=== PATIENT | male | born 1955 | race Caucasian/White ===

== ENCOUNTER 2020-12-03 02:07 | Inpatient (IN) | payer BC, OTHER ==
[~2020-12-03] VITALS: Ht 185.4 cm; Wt 124.4 kg
[2020-12-03] MEDS ORDERED: TAMS-11 PO (02:23)
[2020-12-03] MEDS ORDERED: ATOR40TA78 PO (02:24)
[2020-12-03] MEDS ORDERED: METO25TA35 PO (02:24)
[2020-12-03] MEDS ORDERED: LISI-424 PO (02:25)
[2020-12-03] MEDS ORDERED: ASPI-515 PO (02:26)
[2020-12-03] MEDS ORDERED: OMEP-110 PO (02:27)
--- NOTE | 2020-12-03 02:35 | NUR ---
bib air one from [facility] for c/o sob covid pos, pt a and o x 4 speaking in full sentences on bipap at 80% o2, pt pleasent talkative tolerating bipap well, pt placed on all monitors, pt has 18 g piv to right ac and 18 g to right hand, pt was given ceftriaxone azithromicin decadron and asa at [facility] [place].
--- NOTE | 2020-12-03 03:30 | NUR ---
PT TOLERATING BI PAP, VSS
--- NOTE | 2020-12-03 03:41 | NUR ---
awaiting admit bed
--- NOTE | 2020-12-03 04:57 | NUR ---
REPORT TO GERARDO PT TO CCU [id number] AT THIS TIME WITH THIS RN TECH AND RT ON 100% NON REBREATHER, PLACED ON BI PAP IN CICU TOLERATED WELL
[2020-12-03] MEDS ORDERED: HEPARIN 5,000 UNITS/ML, 1ML IV ONE (05:00)
[2020-12-03] MEDS ORDERED: ONDANSETRON 2MG/ML, 2ML IVPush PRN (05:00)
[2020-12-03] MEDS ORDERED: PHARMACY MAY ADJ FOR RENAL FX MC PRN (05:00)
[2020-12-03] MEDS ORDERED: HEPARIN 5,000 UNITS/ML, 1ML IV PRN (05:00)
[2020-12-03] MEDS ORDERED: morphine SULFATE 10 MG/ML, 1ML IVPush PRN (05:00)
[2020-12-03] MEDS ORDERED: LABETALOL 5MG/ML, 20ML IVPush PRN (05:00)
[2020-12-03] MEDS: CEFTRIAXONE PMX 1GM/50ML 50 ML IV SCH (05:20)
[2020-12-03 05:33] VITALS: BP 132/85
[2020-12-03 06:10] LABS: BASOPHILS % (AUTO) 0 % (0-1); EOSINOPHILS % (AUTO) 0 % (1-7); LYMPHOCYTES % (AUTO) 17 % (22-44); MEAN CORPUSCULAR HEMOGLOBIN 29.4 pg (27.5-34.5); MEAN CORPUSCULAR HGB CONC 34.4 g/dL (33.2-36.2); MEAN PLATELET VOLUME 8.5 fL (7.4-10.4); MONOCYTES % (AUTO) 7 % (2-9); NEUTROPHILS % (AUTO) 76 % (42-75); PLATELET COUNT 180 x10^3/uL (130-400); RED BLOOD COUNT 5.06 x10^6/uL (4.38-5.82); RED CELL DISTRIBUTION WIDTH 14.3 % (9.4-14.8)
[2020-12-03 06:18] LABS: CHLORIDE 105 mmol/L (98-107)
[2020-12-03 06:22] LABS: D-DIMER 15.88 ug/mlFEU (0.00-0.52)
[2020-12-03 06:23] LABS: ALBUMIN 2.6 g/dL (3.4-5.0); ANION GAP 8 mmol/L (5-15); BILIRUBIN,TOTAL 0.6 mg/dL (0.2-1.0); CALCIUM 8.2 mg/dL (8.5-10.1); TOTAL PROTEIN 6.6 g/dL (6.4-8.2)
[2020-12-03 06:24] LABS: MD NO
[2020-12-03 06:33] LABS: ALANINE AMINOTRANSFERASE 35 U/L (12-78); ALKALINE PHOSPHATASE 104 U/L (45-117); CREATININE 1.12 mg/dL (0.7-1.3)
[2020-12-03] MEDS: HEPARIN 25,000 UNITS/250ML PMX 250 ML IV PRN (06:38)
[2020-12-03] MEDS ORDERED: REMDESIVIR 200 MG in SODIUM CHLORIDE 0.9% 250 ML IVPB ONE (07:00)
[2020-12-03] MEDS: CHOLECALCIFEROL 5,000u TAB PO SCH (09:22)
[2020-12-03] MEDS: DOXYCYCLINE 100MG TABLET PO SCH ×2 (09:22→21:31)
[2020-12-03] MEDS: ASCORBIC ACID 500 MG TABLET PO SCH ×2 (09:22→16:57)
[2020-12-03] MEDS: OMEPRAZOLE 20 MG CAPSULE.DR PO SCH (09:22)
[2020-12-03] MEDS: SENNA/DOCUSATE TABLET PO SCH (09:22)
[2020-12-03] MEDS: DEXAMETHASONE 4 MG/ML, 1ML IVPush SCH (09:22)
[2020-12-03] MEDS: INSULIN LISPRO 100 UNITS/ML, PEN SQ-INSULIN SCH ×4 (09:27→21:31)
[2020-12-03 10:10] LABS: RAPID INFLUENZA A Negative (Negative); RAPID INFLUENZA B Negative (Negative)
[2020-12-03] MEDS: ZINC SULFATE 220 MG CAPSULE PO SCH (11:59)
[2020-12-03] MEDS: THIAMINE 100MG TABLET PO SCH (11:59)
[2020-12-03] MEDS ORDERED: PROPOFOL 0 ML IV ONE (12:08)
[2020-12-03] MEDS ORDERED: MIDAZOLAM 1 MG/ML, 2ML IVPush ONE (12:20)
[2020-12-03] MEDS ORDERED: PROPOFOL 10 MG/ML, 20ML IVPush ONE (12:20)
[2020-12-03] MEDS ORDERED: ROCURONIUM 10 MG/ML,10ML IVPush ONE (12:20)
[2020-12-03] MEDS: ASPIRIN 81 MG TABLET CHEW PO SCH (12:52)
[2020-12-03 13:10] LABS: MICROSCOPIC INDICATED
[2020-12-03 13:12] LABS: POTASSIUM,URINE RANDOM 37 mmol/L
[2020-12-03 13:23] LABS: CHLORIDE,URINE RANDOM < 10 mmol/L; SODIUM,URINE RANDOM < 5 mmol/L
[2020-12-03] MEDS ORDERED: PROPOFOL 10 MG/ML, 20ML IV ONE (13:30)
[2020-12-03] MEDS ORDERED: LIDOCAINE-MPF 1%, 2ML ENDO PRN (13:30)
[2020-12-03] MEDS ORDERED: PHARMACY MAY ADJ FOR RENAL FX MC SCH (13:30)
[2020-12-03] MEDS: PROPOFOL 100 ML IV PRN ×3 (14:08→22:58)
[2020-12-03] MEDS ORDERED: ROCURONIUM 10MG/ML,5ML ONE (16:25)
[2020-12-03] MEDS ORDERED: PROPOFOL 10 MG/ML, 20ML ONE (16:25)
[2020-12-03] MEDS ORDERED: PROPOFOL 10 MG/ML, 100ML IV ONE (16:25)
[2020-12-03] MEDS: CARVEDILOL 3.125 MG TABLET PO SCH (16:57)
[2020-12-03] MEDS: MELATONIN 5 MG TABLET PO SCH (21:31)
[2020-12-03] MEDS: ATORVASTATIN 40 MG TABLET PO SCH (21:31)
[2020-12-04] MEDS: HEPARIN 25,000 UNITS/250ML PMX 250 ML IV PRN ×2 (01:42→22:04)
[2020-12-04] MEDS: PROPOFOL 100 ML IV PRN ×2 (02:35→05:18)
[2020-12-04] MEDS: INSULIN LISPRO 100 UNITS/ML, PEN SQ-INSULIN SCH ×4 (03:41→20:22)
[2020-12-04 04:35] LABS: ALANINE AMINOTRANSFERASE 27 U/L (12-78); ALBUMIN 2.4 g/dL (3.4-5.0); ANION GAP 7 mmol/L (5-15); CALCIUM 7.8 mg/dL (8.5-10.1); CHLORIDE 107 mmol/L (98-107); CREATININE 1.41 mg/dL (0.7-1.3)
[2020-12-04 04:38] LABS: BASOPHILS % (AUTO) 0 % (0-1); EOSINOPHILS % (AUTO) 0 % (1-7); LYMPHOCYTES % (AUTO) 9 % (22-44); MEAN CORPUSCULAR HEMOGLOBIN 29.7 pg (27.5-34.5); MEAN CORPUSCULAR HGB CONC 33.7 g/dL (33.2-36.2); MONOCYTES % (AUTO) 8 % (2-9); NEUTROPHILS % (AUTO) 82 % (42-75); PLATELET COUNT 258 x10^3/uL (130-400); RED BLOOD COUNT 4.73 x10^6/uL (4.38-5.82); RED CELL DISTRIBUTION WIDTH 14.7 % (9.4-14.8)
[2020-12-04 04:39] LABS: ALKALINE PHOSPHATASE 98 U/L (45-117); BILIRUBIN,TOTAL 0.5 mg/dL (0.2-1.0); CHOL/HDL RATIO 5.4; CHOLESTEROL, TOTAL 98 mg/dL (140-239); HDL CHOL % 18 % (26-37); HDL CHOLESTEROL (DIRECT) 18 mg/dL (40-60); LDL CHOLESTEROL,CALCULATED 18 mg/dL (54-169); TOTAL PROTEIN 6.1 g/dL (6.4-8.2); TRIGLYCERIDES 309 mg/dL (50-200); VLDL CHOLESTEROL 62 mg/dL (0-25)
[2020-12-04 05:06] LABS: MD NO
[2020-12-04] MEDS: CARVEDILOL 3.125 MG TABLET PO SCH ×2 (05:25→17:41)
[2020-12-04] MEDS: ASPIRIN 81 MG TABLET CHEW PO SCH (05:25)
[2020-12-04] MEDS: CEFTRIAXONE PMX 1GM/50ML 50 ML IV SCH (05:26)
[2020-12-04] MEDS: REMDESIVIR 100 MG in SODIUM CHLORIDE 0.9% 250 ML IVPB SCH (07:52)
[2020-12-04] MEDS: SENNA/DOCUSATE TABLET PO SCH (08:16)
[2020-12-04] MEDS: DOXYCYCLINE 100MG TABLET PO SCH ×2 (08:16→20:13)
[2020-12-04] MEDS: OMEPRAZOLE 20 MG CAPSULE.DR PO SCH (08:16)
[2020-12-04] MEDS: THIAMINE 100MG TABLET PO SCH (08:17)
[2020-12-04] MEDS: DEXAMETHASONE 4 MG/ML, 1ML IVPush SCH (08:17)
[2020-12-04] MEDS: CHOLECALCIFEROL 5,000u TAB PO SCH (08:18)
[2020-12-04] MEDS: ASCORBIC ACID 500 MG TABLET PO SCH ×2 (08:18→17:42)
[2020-12-04] MEDS: MIDAZOLAM HCL 50 MG in SODIUM CHLORIDE 0.9% 40 ML IV PRN ×4 (08:43→22:08)
[2020-12-04] MEDS: ZINC SULFATE 220 MG CAPSULE PO SCH (11:48)
[2020-12-04] MEDS ORDERED: FUROSEMIDE 40 MG/4 ML IV ONE (12:00)
[2020-12-04] MEDS ORDERED: VECURONIUM 10 MG ONE (16:09)
[2020-12-04] MEDS: VECURONIUM 50 MG in SODIUM CHLORIDE 0.9% 50 ML IV PRN ×2 (16:30→20:13)
[2020-12-04] MEDS: ARTIFICIAL TEARS OINT 3.5 GM OP SCH ×3 (16:36→22:07)
[2020-12-04] MEDS ORDERED: ARTIFICIAL TEARS OINT 3.5 GM EACHEYE PRN (17:30)
[2020-12-04] MEDS: ATORVASTATIN 40 MG TABLET PO SCH (20:13)
[2020-12-04] MEDS: MELATONIN 5 MG TABLET PO SCH (20:13)
[2020-12-04] MEDS ORDERED: INSULIN GLARGINE 100 UNITS/ML, PEN SQ-INSULIN SCH (21:00)
[2020-12-05] MEDS: ARTIFICIAL TEARS OINT 3.5 GM OP SCH ×6 (01:33→21:11)
[2020-12-05] MEDS: FENTANYL PF 100 MCG/2ML IVPush PRN ×2 (01:45→12:13)
[2020-12-05] MEDS: VECURONIUM 50 MG in SODIUM CHLORIDE 0.9% 50 ML IV PRN ×2 (02:10→17:58)
[2020-12-05] MEDS: INSULIN LISPRO 100 UNITS/ML, PEN SQ-INSULIN SCH ×4 (03:14→21:11)
[2020-12-05] MEDS: MIDAZOLAM HCL 50 MG in SODIUM CHLORIDE 0.9% 40 ML IV PRN ×4 (03:16→17:58)
[2020-12-05 04:44] LABS: BASOPHILS % (AUTO) 0 % (0-1); EOSINOPHILS % (AUTO) 0 % (1-7); LYMPHOCYTES % (AUTO) 7 % (22-44); MEAN CORPUSCULAR HEMOGLOBIN 29.6 pg (27.5-34.5); MEAN CORPUSCULAR HGB CONC 33.6 g/dL (33.2-36.2); MEAN PLATELET VOLUME 8.6 fL (7.4-10.4); MONOCYTES % (AUTO) 10 % (2-9); NEUTROPHILS % (AUTO) 82 % (42-75); PLATELET COUNT 274 x10^3/uL (130-400); RED BLOOD COUNT 4.74 x10^6/uL (4.38-5.82); RED CELL DISTRIBUTION WIDTH 14.9 % (9.4-14.8)
[2020-12-05 04:48] LABS: MD NO
[2020-12-05 04:58] LABS: ALBUMIN 2.4 g/dL (3.4-5.0); ANION GAP 4 mmol/L (5-15); CALCIUM 7.6 mg/dL (8.5-10.1); CHLORIDE 106 mmol/L (98-107)
[2020-12-05 05:03] LABS: ALANINE AMINOTRANSFERASE 23 U/L (12-78); ALKALINE PHOSPHATASE 104 U/L (45-117); BILIRUBIN,TOTAL 0.5 mg/dL (0.2-1.0); CREATININE 0.98 mg/dL (0.7-1.3)
[2020-12-05] MEDS: CARVEDILOL 3.125 MG TABLET PO SCH ×2 (05:31→17:34)
[2020-12-05] MEDS: ASPIRIN 81 MG TABLET CHEW PO SCH (05:31)
[2020-12-05] MEDS: CEFTRIAXONE PMX 1GM/50ML 50 ML IV SCH (05:31)
[2020-12-05] MEDS: REMDESIVIR 100 MG in SODIUM CHLORIDE 0.9% 250 ML IVPB SCH (06:33)
[2020-12-05] MEDS: THIAMINE 100MG TABLET PO SCH (09:00)
[2020-12-05] MEDS ORDERED: INSULIN GLARGINE 100 UNITS/ML, PEN SQ-INSULIN SCH ×2 (09:00→21:00)
[2020-12-05] MEDS: ASCORBIC ACID 500 MG TABLET PO SCH ×2 (09:06→17:34)
[2020-12-05] MEDS: SENNA/DOCUSATE TABLET PO SCH (09:06)
[2020-12-05] MEDS: OMEPRAZOLE 20 MG CAPSULE.DR PO SCH (09:07)
[2020-12-05] MEDS: SULFAMETH/TRIMETHOPRIM 40-8MG/ML SUSP. PO/NG SCH ×2 (09:07→21:09)
[2020-12-05] MEDS: DEXAMETHASONE 4 MG/ML, 1ML IVPush SCH (09:08)
[2020-12-05] MEDS: CHOLECALCIFEROL 5,000u TAB PO SCH (09:08)
[2020-12-05] MEDS: ZINC SULFATE 220 MG CAPSULE PO SCH (11:55)
[2020-12-05] MEDS: FENTANYL PF 1,000 MCG in SODIUM CHLORIDE 0.9% 80 ML IV PRN ×2 (13:20→21:14)
[2020-12-05] MEDS: MELATONIN 5 MG TABLET PO SCH (21:09)
[2020-12-05] MEDS: ATORVASTATIN 40 MG TABLET PO SCH (21:09)
[2020-12-06] MEDS: ARTIFICIAL TEARS OINT 3.5 GM OP SCH ×6 (02:30→22:59)
[2020-12-06] MEDS: MIDAZOLAM HCL 50 MG in SODIUM CHLORIDE 0.9% 40 ML IV PRN ×4 (02:46→21:29)
[2020-12-06] MEDS: INSULIN LISPRO 100 UNITS/ML, PEN SQ-INSULIN SCH ×4 (02:52→21:31)
[2020-12-06 04:49] LABS: BASOPHILS % (AUTO) 0 % (0-1); EOSINOPHILS % (AUTO) 0 % (1-7); LYMPHOCYTES % (AUTO) 7 % (22-44); MEAN CORPUSCULAR HEMOGLOBIN 29.6 pg (27.5-34.5); MEAN CORPUSCULAR HGB CONC 33.5 g/dL (33.2-36.2); MEAN PLATELET VOLUME 8.5 fL (7.4-10.4); MONOCYTES % (AUTO) 12 % (2-9); NEUTROPHILS % (AUTO) 80 % (42-75); PLATELET COUNT 286 x10^3/uL (130-400); RED BLOOD COUNT 4.87 x10^6/uL (4.38-5.82); RED CELL DISTRIBUTION WIDTH 14.8 % (9.4-14.8)
[2020-12-06 05:12] LABS: CHLORIDE 108 mmol/L (98-107)
[2020-12-06 05:17] LABS: ALANINE AMINOTRANSFERASE 24 U/L (12-78); ALBUMIN 2.4 g/dL (3.4-5.0); ALKALINE PHOSPHATASE 109 U/L (45-117); ANION GAP 4 mmol/L (5-15); BILIRUBIN,TOTAL 0.4 mg/dL (0.2-1.0); CALCIUM 8.2 mg/dL (8.5-10.1); CREATININE 0.74 mg/dL (0.7-1.3); TRIGLYCERIDES 164 mg/dL (50-200)
[2020-12-06] MEDS: CEFTRIAXONE PMX 1GM/50ML 50 ML IV SCH (05:38)
[2020-12-06] MEDS: ASPIRIN 81 MG TABLET CHEW PO SCH (05:39)
[2020-12-06] MEDS: CARVEDILOL 3.125 MG TABLET PO SCH ×2 (05:39→17:11)
[2020-12-06 05:51] LABS: MD SCAN
[2020-12-06] MEDS: VECURONIUM 50 MG in SODIUM CHLORIDE 0.9% 50 ML IV PRN ×2 (07:56→23:37)
[2020-12-06] MEDS: REMDESIVIR 100 MG in SODIUM CHLORIDE 0.9% 250 ML IVPB SCH (08:06)
[2020-12-06] MEDS: THIAMINE 100MG TABLET PO SCH (09:00)
[2020-12-06] MEDS: OMEPRAZOLE 20 MG CAPSULE.DR PO SCH (09:00)
[2020-12-06] MEDS: CHOLECALCIFEROL 5,000u TAB PO SCH (09:08)
[2020-12-06] MEDS: ASCORBIC ACID 500 MG TABLET PO SCH ×2 (09:08→17:11)
[2020-12-06] MEDS: DEXAMETHASONE 4 MG/ML, 1ML IVPush SCH (09:09)
[2020-12-06] MEDS: SULFAMETH/TRIMETHOPRIM 40-8MG/ML SUSP. PO/NG SCH ×2 (09:09→21:30)
[2020-12-06] MEDS: SENNA/DOCUSATE TABLET PO SCH (09:11)
[2020-12-06] MEDS: INSULIN GLARGINE 100 UNITS/ML, PEN SQ-INSULIN SCH ×2 (09:16→21:32)
[2020-12-06] MEDS: FENTANYL PF 1,000 MCG in SODIUM CHLORIDE 0.9% 80 ML IV PRN ×3 (09:25→23:37)
[2020-12-06] MEDS: ZINC SULFATE 220 MG CAPSULE PO SCH (11:18)
[2020-12-06] MEDS: HEPARIN 25,000 UNITS/250ML PMX 250 ML IV PRN (17:04)
[2020-12-06] MEDS: ATORVASTATIN 40 MG TABLET PO SCH (21:30)
[2020-12-06] MEDS: MELATONIN 5 MG TABLET PO SCH (21:30)
[2020-12-07] MEDS: MIDAZOLAM HCL 50 MG in SODIUM CHLORIDE 0.9% 40 ML IV PRN ×4 (01:37→17:24)
[2020-12-07] MEDS: ARTIFICIAL TEARS OINT 3.5 GM OP SCH ×6 (02:30→22:38)
[2020-12-07] MEDS: INSULIN LISPRO 100 UNITS/ML, PEN SQ-INSULIN SCH ×4 (03:12→21:04)
[2020-12-07] MEDS: CEFTRIAXONE PMX 1GM/50ML 50 ML IV SCH (04:23)
[2020-12-07 04:44] LABS: MEAN CORPUSCULAR HEMOGLOBIN 29.6 pg (27.5-34.5); MEAN CORPUSCULAR HGB CONC 33.1 g/dL (33.2-36.2); MEAN PLATELET VOLUME 8.3 fL (7.4-10.4); PLATELET COUNT 276 x10^3/uL (130-400); RED BLOOD COUNT 4.85 x10^6/uL (4.38-5.82); RED CELL DISTRIBUTION WIDTH 14.8 % (9.4-14.8)
[2020-12-07] MEDS: VECURONIUM 50 MG in SODIUM CHLORIDE 0.9% 50 ML IV PRN (04:47)
[2020-12-07] MEDS: FENTANYL PF 1,000 MCG in SODIUM CHLORIDE 0.9% 80 ML IV PRN ×3 (04:48→16:58)
[2020-12-07 04:55] LABS: ALANINE AMINOTRANSFERASE 26 U/L (12-78); ALBUMIN 2.3 g/dL (3.4-5.0); ANION GAP 2 mmol/L (5-15); CHLORIDE 108 mmol/L (98-107); CREATININE 0.74 mg/dL (0.7-1.3)
[2020-12-07 04:57] LABS: ALKALINE PHOSPHATASE 103 U/L (45-117); BILIRUBIN,TOTAL 0.4 mg/dL (0.2-1.0); TOTAL PROTEIN 5.9 g/dL (6.4-8.2)
[2020-12-07 05:48] LABS: MD YES
[2020-12-07] MEDS: ASPIRIN 81 MG TABLET CHEW PO SCH (05:49)
[2020-12-07] MEDS: CARVEDILOL 3.125 MG TABLET PO SCH ×2 (05:49→17:46)
[2020-12-07 05:50] LABS: LYMPH#(MANUAL) 0.91 x10^3/uL (1-3.4); LYMPHS% (MANUAL) 6 % (22-44); METAMYELOCYTES# (MANUAL) 0.15 x10^3/uL (0-0); METAMYELOCYTES% (MANUAL) 1 % (0-1); MONOS#(MANUAL) 0.91 x10^3/uL (0.3-2.7); MONOS% (MANUAL) 6 % (2-9); MYELOCYTES# (MANUAL) 0.45 x10^3/uL (0-0); MYELOCYTES% (MANUAL) 3 % (0-0); SEG#(MANUAL) 12.68 x10^3/uL (1.8-6.8); SEGS% (MANUAL) 84 % (42-75)
[2020-12-07 05:51] LABS: <PLATELET ESTIMATE> ADEQUATE; POLYCHROMASIA 1+
[2020-12-07 05:53] LABS: LARGE PLATELETS 1+
[2020-12-07] MEDS ORDERED: FUROSEMIDE 40 MG/4 ML IV ONE (07:00)
[2020-12-07] MEDS: ALBUTEROL SULFATE 2.5 MG/3 ML NPPB SCH ×3 (09:00→18:58)
[2020-12-07] MEDS: INSULIN GLARGINE 100 UNITS/ML, PEN SQ-INSULIN SCH ×2 (09:00→21:05)
[2020-12-07] MEDS: REMDESIVIR 100 MG in SODIUM CHLORIDE 0.9% 250 ML IVPB SCH (09:09)
[2020-12-07] MEDS: OMEPRAZOLE 20 MG CAPSULE.DR PO SCH (09:11)
[2020-12-07] MEDS: CHOLECALCIFEROL 5,000u TAB PO SCH (09:11)
[2020-12-07] MEDS: SENNA/DOCUSATE TABLET PO SCH (09:11)
[2020-12-07] MEDS: SULFAMETH/TRIMETHOPRIM 40-8MG/ML SUSP. PO/NG SCH (09:11)
[2020-12-07] MEDS: ASCORBIC ACID 500 MG TABLET PO SCH ×2 (09:12→16:59)
[2020-12-07] MEDS: DEXAMETHASONE 4 MG/ML, 1ML IVPush SCH (09:12)
[2020-12-07] MEDS ORDERED: NOREPINEPHRINE 1 MG/ML, 4ML ONE (10:58)
[2020-12-07] MEDS: THIAMINE 100MG TABLET PO SCH (11:40)
[2020-12-07] MEDS: ZINC SULFATE 220 MG CAPSULE PO SCH (11:47)
[2020-12-07] MEDS: HEPARIN 25,000 UNITS/250ML PMX 250 ML IV PRN (14:37)
[2020-12-07] MEDS: MELATONIN 5 MG TABLET PO SCH (21:03)
[2020-12-07] MEDS: ATORVASTATIN 40 MG TABLET PO SCH (21:03)
[2020-12-08] MEDS: MIDAZOLAM HCL 50 MG in SODIUM CHLORIDE 0.9% 40 ML IV PRN ×2 (00:16→05:16)
[2020-12-08] MEDS: ALBUTEROL SULFATE 2.5 MG/3 ML NPPB SCH ×4 (01:48→19:39)
[2020-12-08] MEDS: INSULIN LISPRO 100 UNITS/ML, PEN SQ-INSULIN SCH ×4 (03:04→21:08)
[2020-12-08 04:42] LABS: MEAN CORPUSCULAR HEMOGLOBIN 29.2 pg (27.5-34.5); MEAN CORPUSCULAR HGB CONC 32.9 g/dL (33.2-36.2); MEAN PLATELET VOLUME 8.9 fL (7.4-10.4); PLATELET COUNT 352 x10^3/uL (130-400); RED BLOOD COUNT 4.81 x10^6/uL (4.38-5.82); RED CELL DISTRIBUTION WIDTH 14.6 % (9.4-14.8)
[2020-12-08 04:56] LABS: ANION GAP 2 mmol/L (5-15); CALCIUM 8.3 mg/dL (8.5-10.1); CHLORIDE 106 mmol/L (98-107); CREATININE 0.94 mg/dL (0.7-1.3)
[2020-12-08] MEDS: CEFTRIAXONE PMX 1GM/50ML 50 ML IV SCH (04:58)
[2020-12-08] MEDS: FENTANYL PF 1,000 MCG in SODIUM CHLORIDE 0.9% 80 ML IV PRN ×2 (04:58→13:13)
[2020-12-08] MEDS: ASPIRIN 81 MG TABLET CHEW PO SCH (05:29)
[2020-12-08] MEDS: CARVEDILOL 3.125 MG TABLET PO SCH ×2 (05:29→17:38)
[2020-12-08 05:50] LABS: MD YES
[2020-12-08 05:52] LABS: LYMPH#(MANUAL) 1.41 x10^3/uL (1-3.4); LYMPHS% (MANUAL) 9 % (22-44); METAMYELOCYTES# (MANUAL) 0.31 x10^3/uL (0-0); METAMYELOCYTES% (MANUAL) 2 % (0-1); MONOS#(MANUAL) 2.51 x10^3/uL (0.3-2.7); MONOS% (MANUAL) 16 % (2-9); MYELOCYTES# (MANUAL) 0.16 x10^3/uL (0-0); MYELOCYTES% (MANUAL) 1 % (0-0); SEGS% (MANUAL) 72 % (42-75)
[2020-12-08 05:53] LABS: <PLATELET ESTIMATE> ADEQUATE; <PLT MORPHOLOGY> NORMAL PLT MORPH; POLYCHROMASIA 1+; SMUDGE CELLS 1+
[2020-12-08] MEDS ORDERED: FUROSEMIDE 40 MG/4 ML IV ONE (08:00)
[2020-12-08] MEDS ORDERED: AcetaZOLAMIDE INJ 500 MG IVPush SCH (08:00)
[2020-12-08] MEDS: PROPOFOL 100 ML IV PRN ×4 (08:51→22:01)
[2020-12-08] MEDS: DEXAMETHASONE 4 MG/ML, 1ML IVPush SCH (08:57)
[2020-12-08] MEDS: ASCORBIC ACID 500 MG TABLET PO SCH ×2 (09:00→17:38)
[2020-12-08] MEDS: THIAMINE 100MG TABLET PO SCH (09:00)
[2020-12-08] MEDS: CHOLECALCIFEROL 5,000u TAB PO SCH (09:00)
[2020-12-08] MEDS: OMEPRAZOLE 20 MG CAPSULE.DR PO SCH (09:01)
[2020-12-08] MEDS: SENNA/DOCUSATE TABLET PO SCH (09:01)
[2020-12-08] MEDS: ACETAMINOPHEN 325 MG TABLET PO PRN ×2 (09:03→15:47)
[2020-12-08] MEDS: INSULIN GLARGINE 100 UNITS/ML, PEN SQ-INSULIN SCH ×2 (09:07→21:09)
[2020-12-08] MEDS: HEPARIN 25,000 UNITS/250ML PMX 250 ML IV PRN (11:10)
[2020-12-08] MEDS: ZINC SULFATE 220 MG CAPSULE PO SCH (12:02)
[2020-12-08] MEDS: LACTULOSE 20 GM/30 ML UDC NG PRN (21:09)
[2020-12-08] MEDS: MELATONIN 5 MG TABLET PO SCH (21:09)
[2020-12-08] MEDS: ATORVASTATIN 40 MG TABLET PO SCH (21:09)
[2020-12-09] MEDS: ALBUTEROL SULFATE 2.5 MG/3 ML NPPB SCH (01:35)
[2020-12-09] MEDS: FENTANYL PF 1,000 MCG in SODIUM CHLORIDE 0.9% 80 ML IV PRN ×4 (02:02→23:54)
[2020-12-09] MEDS: PROPOFOL 100 ML IV PRN ×6 (03:35→22:13)
[2020-12-09] MEDS: INSULIN LISPRO 100 UNITS/ML, PEN SQ-INSULIN SCH ×4 (03:42→20:20)
[2020-12-09 04:00] LABS: MEAN CORPUSCULAR HEMOGLOBIN 29.7 pg (27.5-34.5); MEAN CORPUSCULAR HGB CONC 33.1 g/dL (33.2-36.2); MEAN PLATELET VOLUME 8.8 fL (7.4-10.4); PLATELET COUNT 309 x10^3/uL (130-400); RED BLOOD COUNT 4.54 x10^6/uL (4.38-5.82); RED CELL DISTRIBUTION WIDTH 15.4 % (9.4-14.8)
[2020-12-09 04:08] LABS: ANION GAP 3 mmol/L (5-15); CALCIUM 8.2 mg/dL (8.5-10.1); CHLORIDE 106 mmol/L (98-107); CREATININE 0.84 mg/dL (0.7-1.3); TRIGLYCERIDES 150 mg/dL (50-200)
[2020-12-09] MEDS: CEFTRIAXONE PMX 1GM/50ML 50 ML IV SCH (04:08)
[2020-12-09 04:09] LABS: BILIRUBIN,TOTAL 0.5 mg/dL (0.2-1.0)
[2020-12-09 04:57] LABS: MD YES
[2020-12-09 05:02] LABS: ANISOCYTOSIS 1+; BAND#(MANUAL) 0.16 x10^3/uL; BANDS%(MANUAL) 1 % (0-7); LYMPHS% (MANUAL) 7 % (22-44); METAMYELOCYTES# (MANUAL) 0.47 x10^3/uL (0-0); METAMYELOCYTES% (MANUAL) 3 % (0-1); MONOS#(MANUAL) 1.26 x10^3/uL (0.3-2.7); MONOS% (MANUAL) 8 % (2-9); MYELOCYTES# (MANUAL) 0.31 x10^3/uL (0-0); MYELOCYTES% (MANUAL) 2 % (0-0); POLYCHROMASIA 1+; REACTIVE LYMPHS # (MANUAL) 0.16 x10^3/uL (0-0); REACTIVE LYMPHS % (MANUAL) 1 % (0-0); SEG#(MANUAL) 12.25 x10^3/uL (1.8-6.8); SEGS% (MANUAL) 78 % (42-75)
[2020-12-09 05:03] LABS: <PLATELET ESTIMATE> ADEQUATE; <PLT MORPHOLOGY> NORMAL PLT MORPH; SMUDGE CELLS 1+
[2020-12-09] MEDS: ASPIRIN 81 MG TABLET CHEW PO SCH (06:45)
[2020-12-09] MEDS: CARVEDILOL 3.125 MG TABLET PO SCH ×2 (06:45→17:22)
[2020-12-09] MEDS: HEPARIN 25,000 UNITS/250ML PMX 250 ML IV PRN (06:47)
[2020-12-09] MEDS ORDERED: FUROSEMIDE 40 MG/4 ML IV ONE (07:00)
[2020-12-09] MEDS ORDERED: ALBUTEROL SULFATE 2.5 MG/3 ML NPPB PRN (07:30)
[2020-12-09] MEDS ORDERED: ALBUTEROL NEB MC SCH (07:30)
[2020-12-09] MEDS: CHOLECALCIFEROL 5,000u TAB PO SCH (08:26)
[2020-12-09] MEDS: THIAMINE 100MG TABLET PO SCH (08:26)
[2020-12-09] MEDS: DEXAMETHASONE 4 MG/ML, 1ML IVPush SCH (08:27)
[2020-12-09] MEDS: ASCORBIC ACID 500 MG TABLET PO SCH ×2 (08:27→17:23)
[2020-12-09] MEDS: SENNA/DOCUSATE TABLET PO SCH (08:28)
[2020-12-09] MEDS: OMEPRAZOLE 20 MG CAPSULE.DR PO SCH (08:29)
[2020-12-09] MEDS: INSULIN GLARGINE 100 UNITS/ML, PEN SQ-INSULIN SCH ×2 (08:31→20:20)
[2020-12-09] MEDS: ENOXAPARIN 100 MG/ML SQ SCH ×2 (09:47→20:20)
[2020-12-09] MEDS: ZINC SULFATE 220 MG CAPSULE PO SCH (14:59)
[2020-12-09] MEDS: LACTULOSE 20 GM/30 ML UDC NG PRN (19:45)
[2020-12-09] MEDS: MELATONIN 5 MG TABLET PO SCH (20:19)
[2020-12-09] MEDS: ATORVASTATIN 40 MG TABLET PO SCH (20:19)
[2020-12-10] MEDS ORDERED: METOCLOPRAMIDE 5 MG/ML, 2ML IVPush ONE (00:30)
[2020-12-10] MEDS: INSULIN LISPRO 100 UNITS/ML, PEN SQ-INSULIN SCH ×4 (03:59→20:23)
[2020-12-10] MEDS: PROPOFOL 100 ML IV PRN ×4 (03:59→20:59)
[2020-12-10] MEDS: CEFTRIAXONE PMX 1GM/50ML 50 ML IV SCH (03:59)
[2020-12-10 04:43] LABS: MEAN CORPUSCULAR HEMOGLOBIN 29.5 pg (27.5-34.5); MEAN CORPUSCULAR HGB CONC 32.7 g/dL (33.2-36.2); MEAN PLATELET VOLUME 9.1 fL (7.4-10.4); PLATELET COUNT 346 x10^3/uL (130-400); RED CELL DISTRIBUTION WIDTH 14.9 % (9.4-14.8)
[2020-12-10 04:45] LABS: ANION GAP 4 mmol/L (5-15); CALCIUM 8.5 mg/dL (8.5-10.1); CHLORIDE 105 mmol/L (98-107)
[2020-12-10 04:46] LABS: BILIRUBIN,TOTAL 0.4 mg/dL (0.2-1.0)
[2020-12-10] MEDS: ASPIRIN 81 MG TABLET CHEW PO SCH (05:38)
[2020-12-10] MEDS: CARVEDILOL 3.125 MG TABLET PO SCH ×2 (05:39→17:35)
[2020-12-10] MEDS: FENTANYL PF 2,500 MCG in SODIUM CHLORIDE 0.9% 200 ML IV PRN ×2 (05:39→20:20)
[2020-12-10 05:48] LABS: MD YES
[2020-12-10 05:50] LABS: ANISOCYTOSIS 1+; BAND#(MANUAL) 0.18 x10^3/uL; BANDS%(MANUAL) 1 % (0-7); LYMPH#(MANUAL) 1.64 x10^3/uL (1-3.4); LYMPHS% (MANUAL) 9 % (22-44); METAMYELOCYTES# (MANUAL) 0.36 x10^3/uL (0-0); METAMYELOCYTES% (MANUAL) 2 % (0-1); MONOS#(MANUAL) 1.82 x10^3/uL (0.3-2.7); MONOS% (MANUAL) 10 % (2-9); SEGS% (MANUAL) 78 % (42-75)
[2020-12-10 05:51] LABS: <PLATELET ESTIMATE> ADEQUATE; <PLT MORPHOLOGY> NORMAL PLT MORPH; POLYCHROMASIA 1+; SMUDGE CELLS 1+
[2020-12-10] MEDS ORDERED: FUROSEMIDE 40 MG/4 ML IV ONE (07:30)
[2020-12-10] MEDS: DEXAMETHASONE 4 MG/ML, 1ML IVPush SCH (08:50)
[2020-12-10] MEDS: ASCORBIC ACID 500 MG TABLET PO SCH ×2 (08:50→16:35)
[2020-12-10] MEDS: CHOLECALCIFEROL 5,000u TAB PO SCH (08:50)
[2020-12-10] MEDS: THIAMINE 100MG TABLET PO SCH (08:51)
[2020-12-10] MEDS: OMEPRAZOLE 20 MG CAPSULE.DR PO SCH (08:51)
[2020-12-10] MEDS: SENNA/DOCUSATE TABLET PO SCH (08:51)
[2020-12-10] MEDS: INSULIN GLARGINE 100 UNITS/ML, PEN SQ-INSULIN SCH ×2 (08:53→20:22)
[2020-12-10] MEDS: ENOXAPARIN 100 MG/ML SQ SCH ×2 (10:00→21:48)
[2020-12-10] MEDS: MIDAZOLAM 1 MG/ML, 2ML IV PRN ×2 (10:02→18:20)
[2020-12-10] MEDS: METHYLNALTREXONE 12 MG/0.6 ML SYR SQ SCH (10:42)
[2020-12-10] MEDS: RISPERIDONE 1 MG/ML ORAL SOLN PO SCH ×2 (10:42→20:17)
[2020-12-10] MEDS ORDERED: INSULIN LISPRO 100 UNITS/ML, PEN SQ-INSULIN SCH (11:00)
[2020-12-10] MEDS: ZINC SULFATE 220 MG CAPSULE PO SCH (12:19)
[2020-12-10] MEDS ORDERED: LACTULOSE 20 GM/30 ML UDC PO PRN (14:30)
[2020-12-10] MEDS ORDERED: BISACODYL 10 MG SUPP PR PRN (14:30)
[2020-12-10] MEDS: ATORVASTATIN 40 MG TABLET PO SCH (20:17)
[2020-12-10] MEDS: MELATONIN 5 MG TABLET PO SCH (20:18)
[2020-12-10] MEDS: SENNA 176 MG/5 ML ORAL SOL NG SCH (20:20)
[2020-12-11] MEDS: ALBUTEROL/IPRATROPIUM 2.5MG/0.5MG, 3 ML NPPB SCH ×4 (00:57→18:41)
[2020-12-11] MEDS: INSULIN LISPRO 100 UNITS/ML, PEN SQ-INSULIN SCH ×4 (03:16→21:00)
[2020-12-11 04:32] LABS: MEAN CORPUSCULAR HEMOGLOBIN 29.6 pg (27.5-34.5); MEAN CORPUSCULAR HGB CONC 33.4 g/dL (33.2-36.2); MEAN PLATELET VOLUME 8.8 fL (7.4-10.4); PLATELET COUNT 349 x10^3/uL (130-400); RED BLOOD COUNT 4.55 x10^6/uL (4.38-5.82)
[2020-12-11 04:41] LABS: ANION GAP 0 mmol/L (5-15); CALCIUM 8.4 mg/dL (8.5-10.1); CHLORIDE 102 mmol/L (98-107); CREATININE 0.72 mg/dL (0.7-1.3)
[2020-12-11] MEDS: CEFTRIAXONE PMX 1GM/50ML 50 ML IV SCH (05:25)
[2020-12-11] MEDS: ASPIRIN 81 MG TABLET CHEW PO SCH (05:34)
[2020-12-11] MEDS: CARVEDILOL 3.125 MG TABLET PO SCH ×2 (05:35→17:25)
[2020-12-11] MEDS: PROPOFOL 100 ML IV PRN ×3 (05:36→21:24)
[2020-12-11 05:40] LABS: MD YES
[2020-12-11 05:42] LABS: BAND#(MANUAL) 0.31 x10^3/uL; BANDS%(MANUAL) 2 % (0-7); LYMPH#(MANUAL) 1.23 x10^3/uL (1-3.4); LYMPHS% (MANUAL) 8 % (22-44); METAMYELOCYTES# (MANUAL) 0.46 x10^3/uL (0-0); METAMYELOCYTES% (MANUAL) 3 % (0-1); MONOS#(MANUAL) 1.23 x10^3/uL (0.3-2.7); MONOS% (MANUAL) 8 % (2-9); SEG#(MANUAL) 12.17 x10^3/uL (1.8-6.8); SEGS% (MANUAL) 79 % (42-75)
[2020-12-11 05:43] LABS: <PLATELET ESTIMATE> ADEQUATE; <PLT MORPHOLOGY> NORMAL PLT MORPH; ANISOCYTOSIS 1+; POLYCHROMASIA 1+
[2020-12-11 05:44] LABS: SMUDGE CELLS 1+
[2020-12-11] MEDS ORDERED: MAGNESIUM SULFATE PMX 2GM/50ML 50 ML IV ONE (07:00)
[2020-12-11] MEDS: DOCUSATE 50 MG/5 ML, 10ML UDC NG SCH (07:09)
[2020-12-11] MEDS: SENNA/DOCUSATE TABLET PO SCH (07:09)
[2020-12-11] MEDS: ENOXAPARIN 120MG/0.8ML SQ SCH ×2 (08:38→22:00)
[2020-12-11] MEDS: THIAMINE 100MG TABLET PO SCH (08:38)
[2020-12-11] MEDS: RISPERIDONE 1 MG/ML ORAL SOLN PO SCH ×2 (08:39→21:18)
[2020-12-11] MEDS: OMEPRAZOLE 20 MG CAPSULE.DR PO SCH (08:39)
[2020-12-11] MEDS: CHOLECALCIFEROL 5,000u TAB PO SCH (08:39)
[2020-12-11] MEDS: ASCORBIC ACID 500 MG TABLET PO SCH ×2 (08:39→17:06)
[2020-12-11] MEDS: FENTANYL PF 2,500 MCG in SODIUM CHLORIDE 0.9% 200 ML IV PRN ×2 (08:40→21:24)
[2020-12-11] MEDS: INSULIN GLARGINE 100 UNITS/ML, PEN SQ-INSULIN SCH ×2 (09:00→21:21)
[2020-12-11] MEDS ORDERED: RISPERIDONE 1 MG/ML ORAL SOLN PO ONE (09:30)
--- NOTE | 2020-12-11 10:02 | NUR ---
TF per NICOL recs updated (12/11): Vital HP w/ end goal rate @60mL/hr Addendum: 12/11/20 at [address] Amended: Links added.
[2020-12-11] MEDS: MIDAZOLAM 1 MG/ML, 2ML IV PRN ×2 (10:17→16:05)
[2020-12-11] MEDS: ZINC SULFATE 220 MG CAPSULE PO SCH (11:25)
[2020-12-11] MEDS: DEXMEDETOMIDINE 400 MCG in SODIUM CHLORIDE 0.9% 96 ML IV PRN ×2 (17:06→21:36)
[2020-12-11] MEDS: SENNA 176 MG/5 ML ORAL SOL NG SCH (21:18)
[2020-12-11] MEDS: MELATONIN 5 MG TABLET PO SCH (21:18)
[2020-12-11] MEDS: ATORVASTATIN 40 MG TABLET PO SCH (21:19)
[2020-12-12] MEDS: PROPOFOL 100 ML IV PRN ×6 (00:06→21:40)
[2020-12-12] MEDS: ALBUTEROL/IPRATROPIUM 2.5MG/0.5MG, 3 ML NPPB SCH ×4 (00:48→19:00)
[2020-12-12] MEDS: DEXMEDETOMIDINE 400 MCG in SODIUM CHLORIDE 0.9% 96 ML IV PRN ×6 (01:00→22:31)
[2020-12-12] MEDS: INSULIN LISPRO 100 UNITS/ML, PEN SQ-INSULIN SCH ×4 (02:59→21:00)
[2020-12-12 05:05] LABS: BASOPHILS % (AUTO) 0 % (0-1); EOSINOPHILS % (AUTO) 1 % (1-7); LYMPHOCYTES % (AUTO) 15 % (22-44); MEAN CORPUSCULAR HEMOGLOBIN 29.3 pg (27.5-34.5); MONOCYTES % (AUTO) 10 % (2-9); NEUTROPHILS % (AUTO) 75 % (42-75); PLATELET COUNT 290 x10^3/uL (130-400); RED BLOOD COUNT 4.24 x10^6/uL (4.38-5.82); RED CELL DISTRIBUTION WIDTH 14.9 % (9.4-14.8)
[2020-12-12 05:18] LABS: ANION GAP 4 mmol/L (5-15); CALCIUM 8.2 mg/dL (8.5-10.1); CHLORIDE 103 mmol/L (98-107); CREATININE 0.64 mg/dL (0.7-1.3); TRIGLYCERIDES 130 mg/dL (50-200)
[2020-12-12] MEDS: CARVEDILOL 3.125 MG TABLET PO SCH ×2 (05:53→17:58)
[2020-12-12] MEDS: ASPIRIN 81 MG TABLET CHEW PO SCH (05:53)
[2020-12-12 06:21] LABS: MD SCAN
[2020-12-12] MEDS ORDERED: FUROSEMIDE 40 MG/4 ML IV ONE (07:00)
[2020-12-12] MEDS ORDERED: POTASSIUM CHLORIDE 10% 40 MEQ/30 ML UDC PO ONE (07:00)
[2020-12-12] MEDS: DOCUSATE 50 MG/5 ML, 10ML UDC NG SCH (09:00)
[2020-12-12] MEDS: SENNA/DOCUSATE TABLET PO SCH (09:00)
[2020-12-12] MEDS: CHOLECALCIFEROL 5,000u TAB PO SCH (09:41)
[2020-12-12] MEDS: ASCORBIC ACID 500 MG TABLET PO SCH ×2 (09:41→16:20)
[2020-12-12] MEDS: OMEPRAZOLE 20 MG CAPSULE.DR PO SCH (09:42)
[2020-12-12] MEDS: ENOXAPARIN 120MG/0.8ML SQ SCH ×2 (10:00→21:48)
[2020-12-12] MEDS: FENTANYL PF 2,500 MCG in SODIUM CHLORIDE 0.9% 200 ML IV PRN (10:37)
[2020-12-12] MEDS: RISPERIDONE 1 MG/ML ORAL SOLN PO SCH ×2 (10:40→21:40)
[2020-12-12] MEDS: INSULIN GLARGINE 100 UNITS/ML, PEN SQ-INSULIN SCH ×2 (10:48→21:39)
[2020-12-12] MEDS: THIAMINE 100MG TABLET PO SCH (12:30)
[2020-12-12] MEDS: ZINC SULFATE 220 MG CAPSULE PO SCH (12:30)
[2020-12-12] MEDS: METHYLNALTREXONE 12 MG/0.6 ML SYR SQ SCH (14:36)
[2020-12-12] MEDS: MELATONIN 5 MG TABLET PO SCH (21:38)
[2020-12-12] MEDS: ATORVASTATIN 40 MG TABLET PO SCH (21:38)
[2020-12-13] MEDS: ALBUTEROL/IPRATROPIUM 2.5MG/0.5MG, 3 ML NPPB SCH ×4 (01:00→18:36)
[2020-12-13] MEDS: PROPOFOL 100 ML IV PRN ×6 (01:39→20:51)
[2020-12-13] MEDS: DEXMEDETOMIDINE 400 MCG in SODIUM CHLORIDE 0.9% 96 ML IV PRN ×5 (02:49→22:21)
[2020-12-13] MEDS: INSULIN LISPRO 100 UNITS/ML, PEN SQ-INSULIN SCH ×4 (03:00→21:00)
[2020-12-13] MEDS: FENTANYL PF 2,500 MCG in SODIUM CHLORIDE 0.9% 200 ML IV PRN ×2 (03:32→17:18)
[2020-12-13 04:33] LABS: BASOPHILS % (AUTO) 1 % (0-1); EOSINOPHILS % (AUTO) 0 % (1-7); LYMPHOCYTES % (AUTO) 8 % (22-44); MEAN CORPUSCULAR HEMOGLOBIN 29.4 pg (27.5-34.5); MEAN CORPUSCULAR HGB CONC 33.5 g/dL (33.2-36.2); MEAN PLATELET VOLUME 9.2 fL (7.4-10.4); MONOCYTES % (AUTO) 8 % (2-9); NEUTROPHILS % (AUTO) 83 % (42-75); PLATELET COUNT 259 x10^3/uL (130-400); RED BLOOD COUNT 4.17 x10^6/uL (4.38-5.82); RED CELL DISTRIBUTION WIDTH 14.6 % (9.4-14.8)
[2020-12-13 04:44] LABS: ANION GAP 3 mmol/L (5-15); CALCIUM 8.1 mg/dL (8.5-10.1); CHLORIDE 103 mmol/L (98-107)
[2020-12-13 05:14] LABS: MD SCAN
[2020-12-13] MEDS: ASPIRIN 81 MG TABLET CHEW PO SCH (05:50)
[2020-12-13] MEDS: CARVEDILOL 3.125 MG TABLET PO SCH ×2 (05:50→17:03)
[2020-12-13] MEDS ORDERED: VANCOMYCIN PER PHARMACY MC PRN (08:30)
[2020-12-13] MEDS ORDERED: AcetaZOLAMIDE INJ 500 MG IVPush SCH (09:00)
[2020-12-13] MEDS ORDERED: VANCOMYCIN 2,500 MG in SODIUM CHLORIDE 0.9% 500 ML IV ONE (09:00)
[2020-12-13] MEDS ORDERED: PHARMACOKINETIC MONITORING MC PRN (09:00)
[2020-12-13] MEDS: SENNA/DOCUSATE TABLET PO SCH (09:28)
[2020-12-13] MEDS: ASCORBIC ACID 500 MG TABLET PO SCH ×2 (09:28→17:17)
[2020-12-13] MEDS: PIPERACILLIN/TAZO/PMX 3.375GM 50 ML IV SCH ×3 (09:30→21:07)
[2020-12-13] MEDS: INSULIN GLARGINE 100 UNITS/ML, PEN SQ-INSULIN SCH ×2 (09:36→21:09)
[2020-12-13] MEDS: ENOXAPARIN 120MG/0.8ML SQ SCH ×2 (09:52→21:50)
[2020-12-13] MEDS: OMEPRAZOLE 20 MG CAPSULE.DR PO SCH (09:53)
[2020-12-13] MEDS: RISPERIDONE 1 MG/ML ORAL SOLN PO SCH ×2 (09:54→21:50)
[2020-12-13] MEDS: DOCUSATE 50 MG/5 ML, 10ML UDC NG SCH (09:54)
[2020-12-13 11:07] LABS: MICROSCOPIC AUTO
[2020-12-13] MEDS: ATORVASTATIN 40 MG TABLET PO SCH (21:07)
[2020-12-13] MEDS: MELATONIN 5 MG TABLET PO SCH (21:08)
[2020-12-13] MEDS: VANCOMYCIN 2,000 MG in SODIUM CHLORIDE 0.9% 500 ML IV SCH (21:50)
[2020-12-14] MEDS: ALBUTEROL/IPRATROPIUM 2.5MG/0.5MG, 3 ML NPPB SCH ×2 (00:18→07:40)
[2020-12-14] MEDS: PIPERACILLIN/TAZO/PMX 3.375GM 50 ML IV SCH ×4 (02:54→21:12)
[2020-12-14] MEDS: INSULIN LISPRO 100 UNITS/ML, PEN SQ-INSULIN SCH ×4 (04:15→21:13)
[2020-12-14] MEDS: FENTANYL PF 2,500 MCG in SODIUM CHLORIDE 0.9% 200 ML IV PRN ×2 (04:34→17:05)
[2020-12-14] MEDS: ASPIRIN 81 MG TABLET CHEW PO SCH (05:11)
[2020-12-14] MEDS: PROPOFOL 100 ML IV PRN ×5 (05:11→21:20)
[2020-12-14] MEDS: CARVEDILOL 3.125 MG TABLET PO SCH (05:11)
[2020-12-14] MEDS: DEXMEDETOMIDINE 400 MCG in SODIUM CHLORIDE 0.9% 96 ML IV PRN ×4 (05:33→21:15)
[2020-12-14 06:04] LABS: BASOPHILS % (AUTO) 1 % (0-1); EOSINOPHILS % (AUTO) 1 % (1-7); LYMPHOCYTES % (AUTO) 10 % (22-44); MEAN CORPUSCULAR HEMOGLOBIN 29.5 pg (27.5-34.5); MEAN CORPUSCULAR HGB CONC 32.9 g/dL (33.2-36.2); MEAN PLATELET VOLUME 10.1 fL (7.4-10.4); MONOCYTES % (AUTO) 9 % (2-9); NEUTROPHILS % (AUTO) 80 % (42-75); PLATELET COUNT 240 x10^3/uL (130-400); RED BLOOD COUNT 3.84 x10^6/uL (4.38-5.82); RED CELL DISTRIBUTION WIDTH 14.8 % (9.4-14.8)
[2020-12-14 06:15] LABS: MD NO
[2020-12-14 06:20] LABS: ANION GAP 7 mmol/L (5-15); CALCIUM 7.9 mg/dL (8.5-10.1); CHLORIDE 107 mmol/L (98-107)
[2020-12-14 06:24] LABS: CREATININE 0.66 mg/dL (0.7-1.3)
[2020-12-14] MEDS ORDERED: MAGNESIUM SULFATE PMX 2GM/50ML 50 ML IV ONE (07:00)
[2020-12-14] MEDS ORDERED: FUROSEMIDE 40 MG/4 ML IV ONE (07:00)
[2020-12-14 07:11] LABS: BILIRUBIN, DIRECT 0.1 mg/dL (0.1-0.2); BILIRUBIN,INDIRECT 0.4 mg/dL (0.0-2.0); BILIRUBIN,TOTAL 0.5 mg/dL (0.2-1.0)
[2020-12-14] MEDS: ENOXAPARIN 120MG/0.8ML SQ SCH ×2 (10:00→21:19)
[2020-12-14] MEDS: SENNA/DOCUSATE TABLET PO SCH (10:01)
[2020-12-14] MEDS: ASCORBIC ACID 500 MG TABLET PO SCH (10:01)
[2020-12-14] MEDS: DOCUSATE 50 MG/5 ML, 10ML UDC NG SCH (10:02)
[2020-12-14] MEDS: OMEPRAZOLE 20 MG CAPSULE.DR PO SCH (10:02)
[2020-12-14] MEDS: VANCOMYCIN 2,000 MG in SODIUM CHLORIDE 0.9% 500 ML IV SCH ×3 (10:02→22:41)
[2020-12-14] MEDS: INSULIN GLARGINE 100 UNITS/ML, PEN SQ-INSULIN SCH ×2 (10:03→21:13)
[2020-12-14] MEDS: RISPERIDONE 1 MG/ML ORAL SOLN PO SCH ×2 (10:03→21:13)
[2020-12-14] MEDS: METHYLNALTREXONE 12 MG/0.6 ML SYR SQ SCH (10:05)
[2020-12-14] MEDS ORDERED: ALBUTEROL/IPRATROPIUM 2.5MG/0.5MG, 3 ML NPPB PRN ×2 (13:00→13:04)
[2020-12-14] MEDS: ATORVASTATIN 40 MG TABLET PO SCH (21:12)
[2020-12-14] MEDS: ACETAMINOPHEN 325 MG TABLET PO PRN (23:15)
[2020-12-15] MEDS: PROPOFOL 100 ML IV PRN ×8 (01:12→23:44)
[2020-12-15] MEDS: DEXMEDETOMIDINE 400 MCG in SODIUM CHLORIDE 0.9% 96 ML IV PRN ×4 (02:37→21:29)
[2020-12-15] MEDS: FENTANYL PF 2,500 MCG in SODIUM CHLORIDE 0.9% 200 ML IV PRN ×2 (02:37→14:55)
[2020-12-15] MEDS: INSULIN LISPRO 100 UNITS/ML, PEN SQ-INSULIN SCH ×4 (02:43→20:14)
[2020-12-15] MEDS: PIPERACILLIN/TAZO/PMX 3.375GM 50 ML IV SCH ×4 (02:44→20:54)
[2020-12-15 04:39] LABS: BASOPHILS % (AUTO) 1 % (0-1); EOSINOPHILS % (AUTO) 0 % (1-7); LYMPHOCYTES % (AUTO) 10 % (22-44); MEAN CORPUSCULAR HEMOGLOBIN 29.3 pg (27.5-34.5); MEAN CORPUSCULAR HGB CONC 32.7 g/dL (33.2-36.2); MEAN PLATELET VOLUME 9.5 fL (7.4-10.4); MONOCYTES % (AUTO) 11 % (2-9); NEUTROPHILS % (AUTO) 78 % (42-75); PLATELET COUNT 222 x10^3/uL (130-400); RED BLOOD COUNT 3.73 x10^6/uL (4.38-5.82); RED CELL DISTRIBUTION WIDTH 14.9 % (9.4-14.8)
[2020-12-15 04:40] LABS: MD NO
[2020-12-15 04:42] LABS: ANION GAP 3 mmol/L (5-15); CALCIUM 7.9 mg/dL (8.5-10.1); CHLORIDE 108 mmol/L (98-107); CREATININE 0.64 mg/dL (0.7-1.3); TRIGLYCERIDES 159 mg/dL (50-200)
[2020-12-15] MEDS: ASPIRIN 81 MG TABLET CHEW PO SCH (05:58)
[2020-12-15] MEDS ORDERED: POTASSIUM CHLORIDE 20 MEQ PACKET PO ONE (07:30)
[2020-12-15] MEDS: INSULIN GLARGINE 100 UNITS/ML, PEN SQ-INSULIN SCH ×2 (08:55→20:54)
[2020-12-15] MEDS: ENOXAPARIN 120MG/0.8ML SQ SCH ×2 (08:56→20:57)
[2020-12-15] MEDS: FUROSEMIDE 40 MG/4 ML IV SCH ×2 (08:58→16:47)
[2020-12-15] MEDS: SENNA/DOCUSATE TABLET PO SCH (09:04)
[2020-12-15] MEDS: OMEPRAZOLE 20 MG CAPSULE.DR PO SCH (09:04)
[2020-12-15] MEDS: RISPERIDONE 1 MG/ML ORAL SOLN PO SCH ×2 (09:04→20:53)
[2020-12-15] MEDS: DOCUSATE 50 MG/5 ML, 10ML UDC NG SCH (09:04)
[2020-12-15] MEDS: VANCOMYCIN 2,000 MG in SODIUM CHLORIDE 0.9% 500 ML IV SCH ×2 (09:33→21:47)
[2020-12-15] MEDS: ALBUTEROL SULFATE 2.5 MG/3 ML NPPB PRN (12:44)
[2020-12-15] MEDS: ATORVASTATIN 40 MG TABLET PO SCH (20:53)
[2020-12-15] MEDS: ACETAMINOPHEN 325 MG TABLET PO PRN (20:53)
[2020-12-16] MEDS: DEXMEDETOMIDINE 400 MCG in SODIUM CHLORIDE 0.9% 96 ML IV PRN (00:30)
[2020-12-16] MEDS: PROPOFOL 100 ML IV PRN ×9 (02:09→21:40)
[2020-12-16] MEDS: ACETAMINOPHEN 325 MG TABLET PO PRN (02:09)
[2020-12-16] MEDS: PIPERACILLIN/TAZO/PMX 3.375GM 50 ML IV SCH ×3 (02:54→18:03)
[2020-12-16] MEDS: INSULIN LISPRO 100 UNITS/ML, PEN SQ-INSULIN SCH ×4 (02:58→21:02)
[2020-12-16 03:49] LABS: BASOPHILS % (AUTO) 0 % (0-1); EOSINOPHILS % (AUTO) 0 % (1-7); LYMPHOCYTES % (AUTO) 5 % (22-44); MEAN CORPUSCULAR HGB CONC 32.8 g/dL (33.2-36.2); MEAN PLATELET VOLUME 8.9 fL (7.4-10.4); MONOCYTES % (AUTO) 9 % (2-9); NEUTROPHILS % (AUTO) 86 % (42-75); PLATELET COUNT 217 x10^3/uL (130-400); RED BLOOD COUNT 3.87 x10^6/uL (4.38-5.82); RED CELL DISTRIBUTION WIDTH 14.9 % (9.4-14.8)
[2020-12-16 04:00] LABS: ANION GAP 4 mmol/L (5-15); CALCIUM 8.1 mg/dL (8.5-10.1); CHLORIDE 106 mmol/L (98-107); CREATININE 0.68 mg/dL (0.7-1.3)
[2020-12-16 04:30] LABS: MD SCAN
[2020-12-16] MEDS: DEXMEDETOMIDINE 1,000 MCG in SODIUM CHLORIDE 0.9% 240 ML IV PRN ×3 (04:30→22:30)
[2020-12-16] MEDS: ASPIRIN 81 MG TABLET CHEW PO SCH (05:01)
[2020-12-16] MEDS: FENTANYL PF 2,500 MCG in SODIUM CHLORIDE 0.9% 200 ML IV PRN (06:30)
[2020-12-16] MEDS ORDERED: MAGNESIUM SULFATE PMX 2GM/50ML 50 ML IV ONE (07:00)
[2020-12-16] MEDS: OMEPRAZOLE 20 MG CAPSULE.DR PO SCH (09:23)
[2020-12-16] MEDS: ENOXAPARIN 120MG/0.8ML SQ SCH ×2 (09:23→20:58)
[2020-12-16] MEDS: DOCUSATE 50 MG/5 ML, 10ML UDC NG SCH (09:23)
[2020-12-16] MEDS: SENNA/DOCUSATE TABLET PO SCH (09:23)
[2020-12-16] MEDS: RISPERIDONE 1 MG/ML ORAL SOLN PO SCH ×2 (09:24→20:59)
[2020-12-16] MEDS: FUROSEMIDE 40 MG/4 ML IV SCH ×2 (09:24→18:03)
[2020-12-16] MEDS: VANCOMYCIN 2,000 MG in SODIUM CHLORIDE 0.9% 500 ML IV SCH ×2 (09:25→21:03)
[2020-12-16] MEDS: INSULIN GLARGINE 100 UNITS/ML, PEN SQ-INSULIN SCH ×2 (09:46→21:03)
[2020-12-16] MEDS: METHYLNALTREXONE 12 MG/0.6 ML SYR SQ SCH (12:56)
[2020-12-16] MEDS: ATORVASTATIN 40 MG TABLET PO SCH (20:59)
[2020-12-17] MEDS: PROPOFOL 100 ML IV PRN ×10 (00:16→22:00)
[2020-12-17] MEDS: PIPERACILLIN/TAZO/PMX 3.375GM 50 ML IV SCH ×4 (00:16→20:28)
[2020-12-17] MEDS: INSULIN LISPRO 100 UNITS/ML, PEN SQ-INSULIN SCH ×4 (03:16→20:28)
[2020-12-17 04:27] LABS: BASOPHILS % (AUTO) 0 % (0-1); EOSINOPHILS % (AUTO) 1 % (1-7); LYMPHOCYTES % (AUTO) 8 % (22-44); MEAN CORPUSCULAR HEMOGLOBIN 29.5 pg (27.5-34.5); MEAN CORPUSCULAR HGB CONC 33.3 g/dL (33.2-36.2); MEAN PLATELET VOLUME 8.5 fL (7.4-10.4); MONOCYTES % (AUTO) 9 % (2-9); NEUTROPHILS % (AUTO) 83 % (42-75); PLATELET COUNT 185 x10^3/uL (130-400); RED BLOOD COUNT 3.63 x10^6/uL (4.38-5.82); RED CELL DISTRIBUTION WIDTH 15.1 % (9.4-14.8)
[2020-12-17 04:28] LABS: MD NO
[2020-12-17 04:39] LABS: ANION GAP 2 mmol/L (5-15); CALCIUM 8.1 mg/dL (8.5-10.1); CHLORIDE 107 mmol/L (98-107)
[2020-12-17 04:41] LABS: CREATININE 0.57 mg/dL (0.7-1.3)
[2020-12-17] MEDS: ASPIRIN 81 MG TABLET CHEW PO SCH (05:14)
[2020-12-17] MEDS: FUROSEMIDE 40 MG/4 ML IV SCH ×2 (07:55→18:20)
[2020-12-17] MEDS: OMEPRAZOLE 20 MG CAPSULE.DR PO SCH (07:55)
[2020-12-17] MEDS: DOCUSATE 50 MG/5 ML, 10ML UDC NG SCH (07:55)
[2020-12-17] MEDS: SENNA/DOCUSATE TABLET PO SCH (07:55)
[2020-12-17] MEDS: INSULIN GLARGINE 100 UNITS/ML, PEN SQ-INSULIN SCH ×2 (07:56→20:29)
[2020-12-17] MEDS: RISPERIDONE 1 MG/ML ORAL SOLN PO SCH ×2 (08:20→20:28)
[2020-12-17] MEDS: ENOXAPARIN 120MG/0.8ML SQ SCH ×2 (10:35→21:53)
[2020-12-17] MEDS: DEXMEDETOMIDINE 1,000 MCG in SODIUM CHLORIDE 0.9% 240 ML IV PRN ×2 (12:16→21:54)
[2020-12-17] MEDS: VANCOMYCIN 2,000 MG in SODIUM CHLORIDE 0.9% 500 ML IV SCH ×2 (12:17→21:53)
[2020-12-17] MEDS: ATORVASTATIN 40 MG TABLET PO SCH (20:28)
[2020-12-18] MEDS: PROPOFOL 100 ML IV PRN ×6 (00:39→21:29)
[2020-12-18] MEDS: INSULIN LISPRO 100 UNITS/ML, PEN SQ-INSULIN SCH ×4 (03:10→21:00)
[2020-12-18] MEDS: PIPERACILLIN/TAZO/PMX 3.375GM 50 ML IV SCH ×4 (03:11→21:52)
[2020-12-18 04:29] LABS: BASOPHILS % (AUTO) 1 % (0-1); EOSINOPHILS % (AUTO) 0 % (1-7); LYMPHOCYTES % (AUTO) 9 % (22-44); MEAN CORPUSCULAR HEMOGLOBIN 29.4 pg (27.5-34.5); MEAN CORPUSCULAR HGB CONC 32.9 g/dL (33.2-36.2); MEAN PLATELET VOLUME 7.9 fL (7.4-10.4); MONOCYTES % (AUTO) 9 % (2-9); NEUTROPHILS % (AUTO) 80 % (42-75); PLATELET COUNT 173 x10^3/uL (130-400); RED CELL DISTRIBUTION WIDTH 14.7 % (9.4-14.8)
[2020-12-18 04:31] LABS: MD NO
[2020-12-18 04:38] LABS: ANION GAP 2 mmol/L (5-15); CALCIUM 8.1 mg/dL (8.5-10.1); CHLORIDE 106 mmol/L (98-107); CREATININE 0.65 mg/dL (0.7-1.3); TRIGLYCERIDES 177 mg/dL (50-200)
[2020-12-18] MEDS: DOCUSATE 50 MG/5 ML, 10ML UDC NG SCH (09:14)
[2020-12-18] MEDS: FUROSEMIDE 40 MG/4 ML IV SCH ×2 (09:14→17:44)
[2020-12-18] MEDS: RISPERIDONE 1 MG/ML ORAL SOLN PO SCH ×2 (09:14→21:53)
[2020-12-18] MEDS: OMEPRAZOLE 20 MG CAPSULE.DR PO SCH (09:15)
[2020-12-18] MEDS: METHYLNALTREXONE 12 MG/0.6 ML SYR SQ SCH (09:15)
[2020-12-18] MEDS: ENOXAPARIN 120MG/0.8ML SQ SCH ×2 (09:15→21:53)
[2020-12-18] MEDS: SENNA/DOCUSATE TABLET PO SCH (09:15)
[2020-12-18] MEDS: INSULIN GLARGINE 100 UNITS/ML, PEN SQ-INSULIN SCH ×2 (09:16→21:54)
[2020-12-18] MEDS: ASPIRIN 81 MG TABLET CHEW PO SCH (09:19)
[2020-12-18] MEDS: DEXMEDETOMIDINE 1,000 MCG in SODIUM CHLORIDE 0.9% 240 ML IV PRN ×2 (10:40→20:31)
[2020-12-18] MEDS: VANCOMYCIN 2,000 MG in SODIUM CHLORIDE 0.9% 500 ML IV SCH ×2 (10:41→21:57)
[2020-12-18] MEDS ORDERED: VECURONIUM 10 MG ONE (20:40)
[2020-12-18] MEDS ORDERED: VECURONIUM 10 MG IVPush ONE ×2 (21:00)
[2020-12-18] MEDS ORDERED: FENTANYL PF 1,000 MCG in SODIUM CHLORIDE 0.9% 80 ML IV PRN (21:00)
[2020-12-18] MEDS ORDERED: FUROSEMIDE 40 MG/4 ML IV ONE (21:08)
[2020-12-18] MEDS: VECURONIUM 50 MG in SODIUM CHLORIDE 0.9% 50 ML IV PRN (21:19)
[2020-12-18] MEDS: ATORVASTATIN 40 MG TABLET PO SCH (21:52)
[2020-12-18] MEDS: FENTANYL PF 2,500 MCG in SODIUM CHLORIDE 0.9% 200 ML IV PRN (22:41)
[2020-12-18] MEDS: ACETAMINOPHEN 325 MG TABLET PO PRN (23:17)
[2020-12-19] MEDS: VECURONIUM 50 MG in SODIUM CHLORIDE 0.9% 50 ML IV PRN ×3 (02:18→21:38)
[2020-12-19] MEDS: PIPERACILLIN/TAZO/PMX 3.375GM 50 ML IV SCH ×4 (03:17→20:28)
[2020-12-19] MEDS: INSULIN LISPRO 100 UNITS/ML, PEN SQ-INSULIN SCH ×4 (03:26→20:29)
[2020-12-19 03:40] LABS: MEAN CORPUSCULAR HEMOGLOBIN 29.3 pg (27.5-34.5); MEAN CORPUSCULAR HGB CONC 31.9 g/dL (33.2-36.2); MEAN PLATELET VOLUME 8.4 fL (7.4-10.4); PLATELET COUNT 169 x10^3/uL (130-400); RED BLOOD COUNT 3.32 x10^6/uL (4.38-5.82); RED CELL DISTRIBUTION WIDTH 15.8 % (9.4-14.8)
[2020-12-19 03:48] LABS: ANION GAP 2 mmol/L (5-15); CALCIUM 6.9 mg/dL (8.5-10.1); CHLORIDE 113 mmol/L (98-107); CREATININE 0.86 mg/dL (0.7-1.3)
[2020-12-19 04:11] LABS: MD YES
[2020-12-19 04:13] LABS: BAND#(MANUAL) 0.56 x10^3/uL; BANDS%(MANUAL) 3 % (0-7); LYMPH#(MANUAL) 0.94 x10^3/uL (1-3.4); LYMPHS% (MANUAL) 5 % (22-44); METAMYELOCYTES# (MANUAL) 0.56 x10^3/uL (0-0); METAMYELOCYTES% (MANUAL) 3 % (0-1); MONOS#(MANUAL) 0.94 x10^3/uL (0.3-2.7); MONOS% (MANUAL) 5 % (2-9); MYELOCYTES# (MANUAL) 0.75 x10^3/uL (0-0); MYELOCYTES% (MANUAL) 4 % (0-0); SEG#(MANUAL) 15.04 x10^3/uL (1.8-6.8); SEGS% (MANUAL) 80 % (42-75)
[2020-12-19 04:14] LABS: ANISOCYTOSIS 1+; POLYCHROMASIA 1+
[2020-12-19 04:15] LABS: <PLATELET ESTIMATE> ADEQUATE
[2020-12-19 04:16] LABS: LARGE PLATELETS 1+
[2020-12-19] MEDS: ACETAMINOPHEN 325 MG TABLET PO PRN (05:48)
[2020-12-19] MEDS: ASPIRIN 81 MG TABLET CHEW PO SCH (05:48)
[2020-12-19] MEDS: DOCUSATE 50 MG/5 ML, 10ML UDC NG SCH (08:12)
[2020-12-19] MEDS: FUROSEMIDE 40 MG/4 ML IV SCH ×2 (08:12→18:27)
[2020-12-19] MEDS: OMEPRAZOLE 20 MG CAPSULE.DR PO SCH (08:12)
[2020-12-19] MEDS: SENNA/DOCUSATE TABLET PO SCH (08:12)
[2020-12-19] MEDS: RISPERIDONE 1 MG/ML ORAL SOLN PO SCH ×2 (08:12→20:28)
[2020-12-19] MEDS: DEXMEDETOMIDINE 1,000 MCG in SODIUM CHLORIDE 0.9% 240 ML IV PRN ×2 (08:13→23:07)
[2020-12-19] MEDS: INSULIN GLARGINE 100 UNITS/ML, PEN SQ-INSULIN SCH ×2 (08:14→20:29)
[2020-12-19] MEDS: VANCOMYCIN 2,000 MG in SODIUM CHLORIDE 0.9% 500 ML IV SCH ×2 (10:41→21:38)
[2020-12-19] MEDS: ENOXAPARIN 120MG/0.8ML SQ SCH ×2 (10:41→20:28)
[2020-12-19] MEDS: PROPOFOL 100 ML IV PRN ×2 (15:02→20:27)
[2020-12-19] MEDS ORDERED: VECURONIUM 10 MG ONE (19:43)
[2020-12-19] MEDS: ATORVASTATIN 40 MG TABLET PO SCH (20:28)
[2020-12-20] MEDS: PIPERACILLIN/TAZO/PMX 3.375GM 50 ML IV SCH ×4 (02:42→19:55)
[2020-12-20] MEDS: FENTANYL PF 2,500 MCG in SODIUM CHLORIDE 0.9% 200 ML IV PRN ×2 (02:42→20:28)
[2020-12-20] MEDS: PROPOFOL 100 ML IV PRN ×5 (02:47→21:31)
[2020-12-20] MEDS: INSULIN LISPRO 100 UNITS/ML, PEN SQ-INSULIN SCH ×4 (04:04→19:58)
[2020-12-20] MEDS: VECURONIUM 50 MG in SODIUM CHLORIDE 0.9% 50 ML IV PRN ×3 (04:05→20:04)
[2020-12-20 04:27] LABS: BASOPHILS % (AUTO) 1 % (0-1); EOSINOPHILS % (AUTO) 1 % (1-7); LYMPHOCYTES % (AUTO) 10 % (22-44); MEAN CORPUSCULAR HEMOGLOBIN 29.5 pg (27.5-34.5); MEAN CORPUSCULAR HGB CONC 32.6 g/dL (33.2-36.2); MEAN PLATELET VOLUME 8.3 fL (7.4-10.4); MONOCYTES % (AUTO) 12 % (2-9); NEUTROPHILS % (AUTO) 77 % (42-75); PLATELET COUNT 147 x10^3/uL (130-400); RED BLOOD COUNT 3.14 x10^6/uL (4.38-5.82); RED CELL DISTRIBUTION WIDTH 15.3 % (9.4-14.8)
[2020-12-20 04:42] LABS: ANION GAP 4 mmol/L (5-15); CALCIUM 7.8 mg/dL (8.5-10.1); CHLORIDE 104 mmol/L (98-107); CREATININE 2.17 mg/dL (0.7-1.3)
[2020-12-20 04:53] LABS: MD SCAN
[2020-12-20] MEDS: ASPIRIN 81 MG TABLET CHEW PO SCH (06:14)
[2020-12-20] MEDS ORDERED: PHARMACY MAY ADJ FOR RENAL FX MC PRN (06:30)
[2020-12-20] MEDS: FUROSEMIDE 40 MG/4 ML IV SCH ×2 (08:59→17:31)
[2020-12-20] MEDS: DOCUSATE 50 MG/5 ML, 10ML UDC NG SCH (09:02)
[2020-12-20] MEDS: RISPERIDONE 1 MG/ML ORAL SOLN PO SCH ×2 (09:02→19:55)
[2020-12-20] MEDS: SENNA/DOCUSATE TABLET PO SCH (09:02)
[2020-12-20] MEDS: OMEPRAZOLE 20 MG CAPSULE.DR PO SCH (09:02)
[2020-12-20] MEDS: INSULIN GLARGINE 100 UNITS/ML, PEN SQ-INSULIN SCH ×2 (09:09→19:59)
[2020-12-20] MEDS: METHYLNALTREXONE 12 MG/0.6 ML SYR SQ SCH (09:58)
[2020-12-20] MEDS: ENOXAPARIN 60 MG/0.6 ML SQ SCH ×2 (09:59→21:39)
[2020-12-20] MEDS ORDERED: AMIODARONE 150 MG in DEXTROSE 5% 100 ML IV ONE ×3 (15:00→18:30)
[2020-12-20] MEDS: ALBUTEROL SULFATE 2.5 MG/3 ML NPPB PRN (15:19)
[2020-12-20] MEDS: AMIODARONE 450 MG in DEXTROSE 5% 241 ML IV PRN ×2 (15:24→21:42)
[2020-12-20] MEDS ORDERED: FILTER 0.22 MICRON IV ONE (15:30)
[2020-12-20] MEDS ORDERED: FILTER 0.22 MICRON IV PRN (18:30)
[2020-12-20] MEDS: ATORVASTATIN 40 MG TABLET PO SCH (19:55)
[2020-12-20] MEDS: ACETAMINOPHEN 325 MG TABLET PO PRN (20:27)
[2020-12-20] MEDS: DEXMEDETOMIDINE 1,000 MCG in SODIUM CHLORIDE 0.9% 240 ML IV PRN (21:31)
[2020-12-21] MEDS: VECURONIUM 50 MG in SODIUM CHLORIDE 0.9% 50 ML IV PRN (00:29)
[2020-12-21] MEDS: PIPERACILLIN/TAZO/PMX 3.375GM 50 ML IV SCH ×2 (02:09→08:56)
[2020-12-21] MEDS: PROPOFOL 100 ML IV PRN ×2 (02:10→05:43)
[2020-12-21] MEDS: INSULIN LISPRO 100 UNITS/ML, PEN SQ-INSULIN SCH ×2 (03:15→09:01)
[2020-12-21 03:41] LABS: MEAN CORPUSCULAR HEMOGLOBIN 29.4 pg (27.5-34.5); MEAN CORPUSCULAR HGB CONC 32.3 g/dL (33.2-36.2); MEAN PLATELET VOLUME 9.1 fL (7.4-10.4); PLATELET COUNT 151 x10^3/uL (130-400); RED BLOOD COUNT 3.11 x10^6/uL (4.38-5.82); RED CELL DISTRIBUTION WIDTH 15.3 % (9.4-14.8)
[2020-12-21 03:49] LABS: ALBUMIN 1.2 g/dL (3.4-5.0); ANION GAP 6 mmol/L (5-15); CALCIUM 7.6 mg/dL (8.5-10.1); CHLORIDE 101 mmol/L (98-107)
[2020-12-21 03:52] LABS: ALANINE AMINOTRANSFERASE 171 U/L (12-78); ALKALINE PHOSPHATASE 98 U/L (45-117); BILIRUBIN,TOTAL 0.3 mg/dL (0.2-1.0); CREATININE 2.83 mg/dL (0.7-1.3); TOTAL PROTEIN 5.9 g/dL (6.4-8.2); TRIGLYCERIDES 207 mg/dL (50-200)
[2020-12-21 04:18] LABS: MD YES
[2020-12-21 04:20] LABS: BAND#(MANUAL) 0.54 x10^3/uL; BANDS%(MANUAL) 4 % (0-7); EOS#(MANUAL) 0.14 x10^3/uL (0.0-0.4); EOS% (MANUAL) 1 % (1-7); LYMPH#(MANUAL) 1.89 x10^3/uL (1-3.4); LYMPHS% (MANUAL) 14 % (22-44); METAMYELOCYTES# (MANUAL) 0.27 x10^3/uL (0-0); METAMYELOCYTES% (MANUAL) 2 % (0-1); MONOS#(MANUAL) 0.81 x10^3/uL (0.3-2.7); MONOS% (MANUAL) 6 % (2-9); MYELOCYTES# (MANUAL) 0.81 x10^3/uL (0-0); MYELOCYTES% (MANUAL) 6 % (0-0); SEG#(MANUAL) 9.05 x10^3/uL (1.8-6.8); SEGS% (MANUAL) 67 % (42-75)
[2020-12-21 04:21] LABS: ANISOCYTOSIS 1+; BASOPHILLIC STIPPLING 1+; POLYCHROMASIA 1+
[2020-12-21 04:22] LABS: <PLATELET ESTIMATE> ADEQUATE; LARGE PLATELETS 1+
[2020-12-21] MEDS: ASPIRIN 81 MG TABLET CHEW PO SCH (05:42)
[2020-12-21] MEDS: AMIODARONE 450 MG in DEXTROSE 5% 241 ML IV PRN (07:13)
[2020-12-21] MEDS: FUROSEMIDE 40 MG/4 ML IV SCH (08:00)
[2020-12-21] MEDS: DOCUSATE 50 MG/5 ML, 10ML UDC NG SCH (08:56)
[2020-12-21] MEDS: RISPERIDONE 1 MG/ML ORAL SOLN PO SCH (08:56)
[2020-12-21] MEDS: OMEPRAZOLE 20 MG CAPSULE.DR PO SCH (08:56)
[2020-12-21] MEDS: SENNA/DOCUSATE TABLET PO SCH (08:57)
[2020-12-21] MEDS: INSULIN GLARGINE 100 UNITS/ML, PEN SQ-INSULIN SCH (09:01)
[2020-12-21] MEDS: ENOXAPARIN 60 MG/0.6 ML SQ SCH (09:43)
[2020-12-21] MEDS ORDERED: LORazepam 2 MG/ML, 1ML ONE (12:22)
[2020-12-21] MEDS ORDERED: MORPHINE SULFATE 4 MG/ML, 1ML ONE (12:23)
[2020-12-21] MEDS ORDERED: ONDANSETRON 2MG/ML, 2ML IVPush PRN (12:30)
[2020-12-21] MEDS ORDERED: MORPHINE SULFATE 4 MG/ML, 1ML IVPush PRN (12:30)
[2020-12-21] MEDS ORDERED: ATROPINE OPHTH SOLN 1%, 5ML PO PRN (12:30)
[2020-12-21] MEDS ORDERED: MORPHINE 30MG/30ML PCA.SYR IV PRN (12:30)
[2020-12-21] MEDS ORDERED: LORazepam 2 MG/ML, 1ML IVPush PRN (12:30)
[2020-12-21] MEDS ORDERED: MORPHINE SULFATE 4 MG/ML, 1ML IV ONE (13:00)
[2020-12-21] MEDS ORDERED: LORazepam 2 MG/ML, 1ML IV ONE (13:00)
== END 2020-12-21 15:17 | disposition expired | DRG 870 ==
LOC: ED 03:46 → EDIP 04:28 → CCU 04:51
PROVIDERS: ADMIT Family Medicine; ATTEND Internal Medicine
PROC: 5A09357 Assistance with Respiratory Ventilation, Less than 24 Consecutive Hours, Continuous Positive Airway Pressure (ICD-10-PCS; 2020-12-03)
PROC: XW033E5 Introduction of Remdesivir Anti-infective into Peripheral Vein, Percutaneous Approach, New Technology Group 5 (ICD-10-PCS; 2020-12-09)
PROC: 5A1955Z Respiratory Ventilation, Greater than 96 Consecutive Hours (ICD-10-PCS; principal; 2020-12-10)
PROC: 0BH17EZ Insertion of Endotracheal Airway into Trachea, Via Natural or Artificial Opening (ICD-10-PCS; 2020-12-10)
PROC: 0T9B70Z Drainage of Bladder with Drainage Device, Via Natural or Artificial Opening (ICD-10-PCS; 2020-12-13)
DX: A41.89 Other specified sepsis (principal); U07.1 COVID-19; N17.0 Acute kidney failure with tubular necrosis; J12.82 Pneumonia due to coronavirus disease 2019; J96.01 Acute respiratory failure with hypoxia; I21.4 Non-ST elevation (NSTEMI) myocardial infarction; I50.20 Unspecified systolic (congestive) heart failure; E87.4 Mixed disorder of acid-base balance; D64.9 Anemia, unspecified; E66.9 Obesity, unspecified; E78.5 Hyperlipidemia, unspecified; Z80.41 Family history of malignant neoplasm of ovary; T38.0X5A Adverse effect of glucocorticoids and synthetic analogues, initial encounter; Z68.35 Body mass index [BMI] 35.0-35.9, adult; I50.82 Biventricular heart failure; K21.9 Gastro-esophageal reflux disease without esophagitis; I11.0 Hypertensive heart disease with heart failure; I25.10 Atherosclerotic heart disease of native coronary artery without angina pectoris; N40.0 Benign prostatic hyperplasia without lower urinary tract symptoms; Z87.891 Personal history of nicotine dependence; Z95.5 Presence of coronary angioplasty implant and graft; G83.9 Paralytic syndrome, unspecified; E88.09 Other disorders of plasma-protein metabolism, not elsewhere classified
CPT/HCPCS: 36415; 36600; 84145; 87400; 96374; 96375; 99285; J7613; 71045; 80048; 80053; 80061; 80202; 81001; 82247; 82248; 82436; 82570; 82803; 82962; 83036; 83605; 83615; 83735; 83880; 84100; 84133; 84300; 84478; 84484; 85018; 85025; 85379; 85520; 86140; 87040; 87070; 87081; 87086; 87205; 93005; 93306; 93308; 93325; 94002; 94003; 94640; 94660; 94667; 94668; G0378; J0696; J1100; J1644; J1650; J1940; J2250; J2543; J2704; J3010; J3370; J7060; J0282; J1815; J2060; J2270; J2765; J3475; J7040; J7050; U0003